=== PATIENT | male | born 1975 | race Caucasian/White ===

== ENCOUNTER 2019-04-11 11:07 | Emergency (ER) | payer OTHER ==
[~2019-04-11] VITALS: Ht 170.2 cm; Wt 69.4 kg
[~2019-04-11 11:07] MED LIST: ACET500C5 PO; BACI28.34 TOP
[2019-04-11 11:12] VITALS: BP 122/75; PULSE 86; RESP 18; Ht 170.2 cm; Wt 69.4 kg
[2019-04-11] MEDS ORDERED: ACETAMINOPHEN 500 MG TAB PO STA (12:14)
[2019-04-11] MEDS ORDERED: IBUPROFEN 200 MG TAB PO ONE (12:30)
== END 2019-04-11 14:33 | disposition home or self-care (01) ==
LOC: FTE 11:07
DX: S00.83XA Contusion of other part of head, initial encounter (principal); S40.021A Contusion of right upper arm, initial encounter; S40.022A Contusion of left upper arm, initial encounter; H11.31 Conjunctival hemorrhage, right eye; Y04.8XXA Assault by other bodily force, initial encounter
CPT/HCPCS: Z7502; Z7610; 99282